=== PATIENT | male | born 1990 | race Two or more races ===

== ENCOUNTER 2016-12-04 12:47 | Emergency (ER) | payer SELFPAY ==
[~2016-12-04] VITALS: Ht 170.2 cm; Wt 136.1 kg
[~2016-12-04 12:47] MED LIST: BACTRIM DS TAB1 EAC1 ORAL
[2016-12-04 13:00] VITALS: BP 130/83
[2016-12-04] MEDS ORDERED: NKM (13:00)
[2016-12-04] MEDS ORDERED: Famotidine 20 MG/ 2ML VIAL IVP ONE (13:15)
--- NOTE | 2016-12-04 13:26 | Emergency Room Report ---
History of Present Illness General Chief Complaint: Chest Pain Source: Patient Present Illness HPI This is a 26-year-old male presented after increased epigastric pain and vomiting. This began several days ago. Patient associated abdominal pain which radiated to his back. Patient denied any fever. He reported having the persistent chest discomfort for several months. 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 He denies any recent trauma he reports drinking alcohol during the weekend but states he does not drink heavily. The pain is described as a burning sensation epigastric area Allergies: Coded Allergies: No Known Allergies (Unverified , 09/20/14) Patient History Past Medical History: see triage record Reviewed Nursing Documentation: PMH: Agreed, PSxH: Agreed Nursing Documentation-PMH Past Medical History: No Stated History Review of Systems All Other Systems: negative except mentioned in HPI Physical Exam Vital Signs Date Time Temp Pulse Resp B/P (MAP) Pulse Ox O2 Delivery O2 Flow Rate FiO2 12/04/16 12:54 98.2 106 20 129/85 97 Room Air Sp02 EP Interpretation: reviewed, normal General Appearance: normal inspection, well appearing, no apparent distress, alert, GCS 15, obese, Chronically Ill Head: atraumatic ENT: normal ENT inspection, hearing grossly normal, normal voice Neck: normal inspection, full range of motion, supple, no bony tend Respiratory: normal inspection, lungs clear, normal breath sounds, no respiratory distress, no retraction, no wheezing Cardiovascular #1: regular rate, rhythm, no edema Gastrointestinal: normal inspection, normal bowel sounds, non tender, soft, no guarding, no hernia Genitourinary: no CVA tenderness Musculoskeletal: normal inspection, back normal, normal range of motion Neurologic: normal inspection, alert, oriented x3, responsive, 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 Differential diagnoses included ischemic bowel, appendicitis, perforated viscus, abdominal aortic aneurysm, inferior myocardial infarction, viral gastroenteritis. Because of complexity of patient' s case laboratory testing and imaging studies were ordered. The EKG interpreted by me showed normal sinus rhythm with a rate of [address] or T wave changes.Patient was given Zofran. A CT imaging of the abdomen pelvis read by radiology showed hiatal hernia and small umbilical hernia. The patient is also noted to have fatty liver. Laboratory testing was notable for mildly elevated liver function tests. Patient was given prescriptions for Zofran as well as Keflex and acid blocking medication. To the patient's symptoms are likely due to gastroesophageal reflux however he was advised to followup with his primary care physician for further evaluation and treatment The patient is advised alcohol cessation and a low carbohydrate diet. The patient is advised to follow up with primary care doctor in 1-2 days. Patient is advised to return if any worsening condition or if any changes in status that are concerning. Labs Test 12/04/16 13:15 12/04/16 13:36 White Blood Count 11.0 K/UL (4.8-10.8) Red Blood Count 5.21 M/UL (4.70-6.10) Hemoglobin 15.3 G/DL (14.2-18.0) Hematocrit 46.9 % (42.0-52.0) Mean Corpuscular Volume 90 FL (80-99) Mean Corpuscular Hemoglobin 29.3 PG (27.0-31.0) Mean Corpuscular Hemoglobin Concent 32.5 G/DL (32.0-36.0) Red Cell Distribution Width 12.2 % (11.6-14.8) Platelet Count 250 K/UL (150-450) Mean Platelet Volume 9.1 FL (6.5-10.1) Neutrophils (%) (Auto) 59.0 % (45.0-75.0) Lymphocytes (%) (Auto) 30.3 % (20.0-45.0) Monocytes (%) (Auto) 7.5 % (1.0-10.0) Eosinophils (%) (Auto) 2.1 % (0.0-3.0) Basophils (%) (Auto) 1.2 % (0.0-2.0) Sodium Level 143 mEQ/L (135-145) Potassium Level 4.7 mEQ/L (3.4-4.9) Chloride Level 104 mEQ/L (98-107) Carbon Dioxide Level 29 mEQ/L (20-30) Anion Gap 10 (5-15) Blood Urea Nitrogen 12 mg/dL (7-23) Creatinine 1.1 mg/dL (0.7-1.2) Estimat Glomerular Filtration Rate > 60 mL/min (>60) Glucose Level 83 mg/dL (74-106) Calcium Level 9.8 mg/dL (8.6-10.2) Total Bilirubin 0.4 mg/dL (0.0-1.2) Aspartate Amino Transf (AST/SGOT) 57 U/L (5-40) Alanine Aminotransferase (ALT/SGPT) 84 U/L (3-41) Alkaline Phosphatase 60 U/L (40-129) Troponin I < 0.30 ng/mL (<=0.30) Total Protein 7.5 g/dL (6.6-8.7) Albumin 4.3 g/dL (3.5-5.2) Globulin 3.2 g/dL Albumin/Globulin Ratio 1.3 (1.0-2.7) Lipase 15 U/L (< 60) Urine Color Yellow Urine Appearance Slightly cloudy Urine pH 6 (4.5-8.0) Urine Specific [place] 1.025 (1.005-1.035) Urine Protein 2+ (NEGATIVE) Urine Glucose (UA) Negative (NEGATIVE) Urine Ketones Negative (NEGATIVE) Urine Occult Blood 1+ (NEGATIVE) Urine Nitrite Negative (NEGATIVE) Urine Bilirubin Negative (NEGATIVE) Urine Urobilinogen 1 MG/DL (0.0-1.0) Urine Leukocyte Esterase 1+ (NEGATIVE) Urine RBC 2-4 /HPF (0 - 0) Urine WBC 10-15 /HPF (0 - 0) Urine Squamous Epithelial Cells Few /LPF (NONE/OCC) Urine Bacteria Few /HPF (NONE) Urine Hyaline Casts 5-10 /LPF (NONE) Urine Granular Casts 0-2 /LPF (NONE) Urine Mucus Moderate /LPF (NONE/OCC) Last Vital Signs Date Time Temp Pulse Resp B/P (MAP) Pulse Ox O2 Delivery O2 Flow Rate FiO2 12/04/16 12:54 98.2 106 20 129/85 97 Room Air Status: improved Disposition: HOME, SELF-CARE Condition: Stable Scripts Ondansetron (Zofran) 4 Mg Tablet 4 MG ORAL Q6H Y for Nausea & Vomiting, #30 TAB 0 Refills Prov: Mauro Sharma 12/04/16 Omeprazole Magnesium (PRILOSEC) 10 Mg Suspdr.pkt 10 MG ORAL DAILY, #30 PACKET Prov: Mauro Sharma 9/20/17 Cephalexin* (KEFLEX*) 500 Mg Capsule 500 MG ORAL Q6H, #28 CAP 0 Refills Prov: Mauro Sharma 12/04/16 Mauro Sharma Dec 04, 2016 13:26
[2016-12-04 13:39] LABS: BASOPHILS % (AUTO) 1.2 % (0.0-2.0); EOSINOPHILS % (AUTO) 2.1 % (0.0-3.0); LYMPHOCYTES % (AUTO) 30.3 % (20.0-45.0); MEAN CORPUSCULAR HEMOGLOBIN 29.3 PG (27.0-31.0); MEAN CORPUSCULAR HGB CONC 32.5 G/DL (32.0-36.0); MEAN CORPUSCULAR VOLUME 90 FL (80-99); MEAN PLATELET VOLUME 9.1 FL (6.5-10.1); MONOCYTES % (AUTO) 7.5 % (1.0-10.0); PLATELET COUNT 250 K/UL (150-450); RED BLOOD COUNT 5.21 M/UL (4.70-6.10); RED CELL DISTRIBUTION WIDTH 12.2 % (11.6-14.8)
[2016-12-04 13:52] LABS: ALANINE AMINOTRANSFERASE 84 U/L (3-41); ALBUMIN/GLOBULIN RATIO 1.3 (1.0-2.7); ANION GAP 10 (5-15); ASPARTATE AMINO TRANSFERASE 57 U/L (5-40); CALCIUM 9.8 mg/dL (8.6-10.2); CARBON DIOXIDE 29 mEQ/L (20-30); CHLORIDE 104 mEQ/L (98-107); CREATININE 1.1 mg/dL (0.7-1.2); GLOMERULAR FILTRATION RATE > 60 mL/min (>60); HEMOLYSIS 7; LIPASE 15 U/L (< 60); POTASSIUM 4.7 mEQ/L (3.4-4.9); SODIUM 143 mEQ/L (135-145); TOTAL PROTEIN 7.5 g/dL (6.6-8.7); TROPONIN I < 0.30 ng/mL (<=0.30)
[2016-12-04 14:00] VITALS: BP 116/72
[2016-12-04 14:07] LABS: KETONES,URINE NEGATIVE (NEGATIVE); LEUKOCYTE ESTERASE ,URINE 1+ (NEGATIVE); NITRITE,URINE NEGATIVE (NEGATIVE); PH,URINE 6 (4.5-8.0); PROTEIN,URINE 2+ (NEGATIVE); UROBILINOGEN,URINE 1 MG/DL (0.0-1.0)
[2016-12-04 14:17] LABS: APPEARANCE,URINE SLIGHTLY CLOUDY; BACTERIA,URINE FEW /HPF; GRANULAR CASTS,URINE 0-2 /LPF; MUCUS,URINE MODERATE /LPF (NONE/OCC); SQUAMOUS EPITHELIAL CELL,UR FEW /LPF (NONE/OCC)
[2016-12-04] MEDS ORDERED: cefTRIAXone 1 GM in NS 55 ML IVPB ONE (14:45)
--- NOTE | 2016-12-04 15:00 | Diagnostic Imaging Report ---
Clinical Indication: 26-year-old male with increased epigastric pain vomiting beginning several days ago Technique: No oral contrast utilized, per emergency room physician request IV administration nonionic contrast. Venous phase spiral acquisition obtained through the abdomen and pelvis. Multiplanar reconstructions were generated. Total dose length product 1113 mGycm. CTDIvol(s) 19 mGy. Dose reduction achieved using automated exposure control Comparison: None Findings: Assessment of the GI tract is limited in the absence of oral contrast. The appendix is normal. No evidence of diverticulosis or diverticulitis. No small bowel distention. No free or loculated intraperitoneal air or fluid. Distal esophagus, stomach, duodenum are unremarkable. Tiny fat-containing helical hernia is incidentally noted The liver is diffusely hypoattenuating, consistent with fatty change. No no definite acute abnormality focal abnormality demonstrated. The gallbladder is nondistended. No biliary ductal dilatation. The pancreas, spleen, adrenals, kidneys are all unremarkable. No renal or ureteral calculi, hydronephrosis, or hydroureter. The bladder is unremarkable. No pelvic mass or adenopathy. No retroperitoneal or mesenteric mass or adenopathy. A few slightly prominent but not enlarged lymph nodes are seen in the right lower quadrant mesenteric fat. The included lung bases are clear. The bones are unremarkable. Impression: Limited assessment of the GI tract, given absence of oral contrast demonstration No definite acute abnormality Fatty liver Incidental finding tiny fat-containing umbilical hernia. The CT scanner at [facility] is accredited by the [employer] and the scans are performed using protocols designed to limit radiation exposure to as low as reasonably achievable to attain images of sufficient resolution adequate for diagnostic evaluation.
[2016-12-04] MEDS ORDERED: KEFLEX500 MG ORAL (15:13)
[2016-12-04] MEDS ORDERED: PRILOSEC10 M1 ORAL (15:13)
[2016-12-04] MEDS ORDERED: ZOFRAN4 MG ORAL (15:18)
[2016-12-04 15:29] VITALS: BP 129/83
== END 2016-12-04 15:30 | disposition home or self-care (01) ==
LOC: EMR 13:26
DX: N39.0 Urinary tract infection, site not specified (principal); R10.13 Epigastric pain; R11.10 Vomiting, unspecified; K76.0 Fatty (change of) liver, not elsewhere classified
CPT/HCPCS: 36415; 74177; 80053; 81003; 83690; 84484; 85025; 87086; 96361; 96365; 96375; 99284; J0696; J2405; J7040; Q9967; S0028

== ENCOUNTER 2019-12-19 08:41 | Emergency (ER) | payer SELFPAY ==
[~2019-12-19] VITALS: Ht 172.7 cm; Wt 163.3 kg
[~2019-12-19 08:41] MED LIST changes: +KEFLEX500 MG ORAL; +NKM; +PRILOSEC10 M1 ORAL; +ZOFRAN4 MG ORAL
--- NOTE | 2019-12-19 09:25 | Emergency Room Report ---
History of Present Illness General Chief Complaint: General Complaint Source: Patient Present Illness HPI Patient presents with several complaints. The main one he is concerned about is he is passing blood per rectum. He has had hemorrhoids in the past. Does not feel them at this time. It is been bright red blood. Has not been mixed with the stool. He denies any diarrhea but has had constipation. The constipation has been worse over the last week. The other problems are that he is had some wheezing that other people of heard. He is never had breathing treatments in the past or an inhaler. He does smoke and stopped 1 week ago. He denies productive cough. He is felt feverish. In addition he is felt fleeting chest pains and also indigestion. He is also had some cramps in his muscles recently. Mainly his left leg and thigh. He has been traveling on an airplane several times visiting family members across the country. He frequently gets diaphoretic with exertion. Sometimes this happens at rest. He rates the chest pain at 5/10, pressure, more on right and not radiating. He denies chills, sore throat, productive cough, NV, dysuria, joint pain, hea daches, anxiety, visual changes. 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 Patient History Past Medical History: see triage record, old chart reviewed Social History: Reports: smoking Social History Narrative sports media Reviewed Nursing Documentation: PMH: Agreed; PSxH: Agreed Nursing Documentation-PM Past Medical History: No History, Except For Review of Systems All Other Systems: negative except mentioned in HPI Physical Exam Vital Signs Date Time Temp Pulse Resp B/P (MAP) Pulse Ox O2 Delivery O2 Flow Rate FiO2 12/19/19 08:46 98.1 114 22 137/84 (101) 96 Room Air Sp02 EP Interpretation: reviewed, abnormal - interpreted as slightly low by me General Appearance: no apparent distress, alert, GCS 15, non-toxic, obese Head: normocephalic, atraumatic Eyes: bilateral eye normal inspection, bilateral eye PERRL ENT: normal pharynx, other - wearing mask Neck: full range of motion, supple Respiratory: no respiratory distress, wheezing, expiration Cardiovascular #1: regular rate, rhythm, no edema Cardiovascular #2: 2+ radial (R) Gastrointestinal: non tender, soft, overweight Rectal: hemorrhoids - Blood without active bleeding Genitourinary: no CVA tenderness Musculoskeletal: back normal, normal range of motion, no calf tenderness, Sonu's Sign negative Neurologic: alert, grossly normal Psychiatric: mood/affect normal Skin: no rash, warm/dry Medical Decision Making Diagnostic Impression: Primary Impression: Dyspnea Qualified Codes: R06.00 - Dyspnea, unspecified Additional Impressions: Chest pain Qualified Codes: R07.89 - Other chest pain Bronchospasm Bleeding hemorrhoid COVID-19 ruled out by laboratory testing ER Course Patient presents with dyspnea and passing bright red blood per rectum. There were several issues going on here. We need to exclude COVID-19. He has bronchospasm. Chest x-ray and EKG are indicated to rule out ID, PE and also pneumonia. Labs will be obtained to exclude electrolyte abnormalities as he is having some cramps in his muscles. The rectal bleeding is fairly clearly a hemorrhoid and this can be taken care of however CBC is indicated. Patient will be treated with DuoNeb after COVID-19 returns, Tylenol and Mylanta. Patient is complaining about some reflux symptoms. He has a history of hiatal hernia. EKG sinus tachycardia. CXR clear. CBC normal. CMP normal. Elevated D-dimer. UA normal. Patient still with CP, diaphoretic after tx. + d dimer. CTA ordered. cardiac monitor. Minimal improvement with Duoneb. CTA no PE. After repeat albuterol patient markedly improved. Solu-Medrol given to the patient. Exercised in the emergency department and oxygen saturation after that is remaining at 98%. He feels better and wants to be observed as an outpatient. No medical emergency. Patient stable for outpatient observation and treatment. Laboratory Tests Test 12/19/19 09:50 12/19/19 10:00 White Blood Count 9.5 K/UL (4.8-10.8) Red Blood Count 5.00 M/UL (4.70-6.10) Hemoglobin 14.3 G/DL (14.2-18.0) Hematocrit 42.4 % (42.0-52.0) Mean Corpuscular Volume 85 FL (80-99) Mean Corpuscular Hemoglobin 28.6 PG (27.0-31.0) Mean Corpuscular Hemoglobin Concent 33.7 G/DL (32.0-36.0) Red Cell Distribution Width 12.8 % (11.6-14.8) Platelet Count 224 K/UL (150-450) Mean Platelet Volume 7.7 FL (6.5-10.1) Neutrophils (%) (Auto) 62.7 % (45.0-75.0) Lymphocytes (%) (Auto) 25.7 % (20.0-45.0) Monocytes (%) (Auto) 8.5 % (1.0-10.0) Eosinophils (%) (Auto) 2.2 % (0.0-3.0) Basophils (%) (Auto) 1.0 % (0.0-2.0) Prothrombin Time 11.1 SEC (9.30-11.50) Prothrombin Time INR 1.0 (0.9-1.1) Activated Partial Thromboplast Time 27 SEC (23-33) D-Dimer 0.93 mg/L FEU (0.00-0.49) H Sodium Level 139 MMOL/L (136-145) Potassium Level 4.6 MMOL/L (3.5-5.1) Chloride Level 106 MMOL/L (98-107) Carbon Dioxide Level 27 MMOL/L (21-32) Anion Gap 6 mmol/L (5-15) Blood Urea Nitrogen 15 mg/dL (7-18) Creatinine 1.0 MG/DL (0.55-1.30) Estimated Glomerular Filtration Rate > 60 mL/min (>60) Glucose Level 104 MG/DL (74-106) Calcium Level 9.0 MG/DL (8.5-10.1) Ferritin 222 NG/ML (8-388) Total Bilirubin 0.6 MG/DL (0.2-1.0) Aspartate Amino Transferase (AST) 50 U/L (15-37) H Alanine Aminotransferase (ALT) 79 U/L (12-78) H Alkaline Phosphatase 74 U/L (46-116) Lactate Dehydrogenase 189 U/L (81-234) Total Creatine Kinase 254 U/L (26-308) Troponin I 0.000 ng/mL (0.000-0.056) C-Reactive Protein, Quantitative 4.3 mg/dL (0.00-0.90) H Pro-B-Type Natriuretic Peptide 6 pg/mL (0-125) Total Protein 7.6 G/DL (6.4-8.2) Albumin 3.6 G/DL (3.4-5.0) Globulin 4.0 g/dL Albumin/Globulin Ratio 0.9 (1.0-2.7) L Lipase 72 U/L (73-393) L Urine Color Brown Urine Appearance Clear Urine pH 5 (4.5-8.0) Urine Specific [place] 1.025 (1.005-1.035) Urine Protein 2+ (NEGATIVE) H Urine Glucose (UA) Negative (NEGATIVE) Urine Ketones 1+ (NEGATIVE) H Urine Blood Negative (NEGATIVE) Urine Nitrite Negative (NEGATIVE) Urine Bilirubin Negative (NEGATIVE) Urine Urobilinogen 1 MG/DL (0.0-1.0) H Urine Leukocyte Esterase 1+ (NEGATIVE) H Urine RBC 0 /HPF (0 - 0) Urine WBC 0-2 /HPF (0 - 0) Urine Squamous Epithelial Cells Occasional /LPF Urine Bacteria Occasional /HPF (NONE) Urine Mucus Few /LPF (NONE/OCC) H Microbiology Date/Time Source Procedure Growth Status 12/19/19 09:50 Nasopharynx SARS-CoV-2 RdRp Gene Assay - Final Complete EKG Diagnostic Results Rate: tachycardiac Rhythm: NSR ST Segments: no acute changes - NSSTTW changes Rhythm Strip Diag. Results EP Interpretation: yes Rhythm: no PVC's, no ectopy, other - ST Chest X-Ray Diagnostic Results Chest X-Ray Diagnostic Results : Chest X-Ray Ordered: Yes # of Views/Limited/Complete: 1 View Indication: Other EP Interpretation: Yes Interpretation: no consolidation, no effusion, no pneumothorax Impression: Other CT/MRI/US Diagnostic Results CT/MRI/US Diagnostic Results : Imaging Test Ordered: CTA chest Impression No PE or infiltrates Last Vital Signs Date Time Temp Pulse Resp B/P (MAP) Pulse Ox O2 Delivery O2 Flow Rate FiO2 12/19/19 14:47 97.9 103 14 153/98 99 Room Air 12/19/19 13:24 21 Status: improved Disposition: HOME, SELF-CARE Condition: Improved Scripts Lactulose (LACTULOSE*) 20 Gm/30 Ml Solution 30 ML ORAL QHS, #120 ML 1 Refill Prov: Luis Santana MD 12/19/19 Hydrocortisone Acetate* (ANUSOL-HC*) 25 Mg Supp.rect 1 SUPP RECTAL TWICE A DAY, #14 SUPP Prov: Luis Santana MD 12/19/19 Albuterol Sulfate* (PROAIR HFA*) 8.5 Gm Hfa.aer.ad 2 PUFFS INH Q6H, #8.5 GM 0 Refills Prov: Luis Santana MD 12/19/19 Prednisone* (PREDNISONE*) 20 Mg Tablet 40 MG ORAL DAILY, #10 TAB Prov: Luis Santana MD 12/19/19 Luis Santana MD Dec 19, 2019 09:25
[2019-12-19] MEDS ORDERED: Mylanta II UD 30ml ORAL ONE (09:30)
[2019-12-19] MEDS ORDERED: Albuterol/Ipratropium 3ml neb HHN ONE (09:30)
[2019-12-19 10:01] LABS: EOSINOPHILS % (AUTO) 2.2 % (0.0-3.0); HEMATOCRIT 42.4 % (42.0-52.0); HEMOGLOBIN 14.3 G/DL (14.2-18.0); LYMPHOCYTES % (AUTO) 25.7 % (20.0-45.0); MEAN CORPUSCULAR VOLUME 85 FL (80-99); MONOCYTES % (AUTO) 8.5 % (1.0-10.0); NEUTROPHILS % (AUTO) 62.7 % (45.0-75.0); PLATELET COUNT 224 K/UL (150-450); RED CELL DISTRIBUTION WIDTH 12.8 % (11.6-14.8); WHITE BLOOD COUNT 9.5 K/UL (4.8-10.8)
[2019-12-19 10:17] LABS: ANION GAP 6 mmol/L (5-15); BLOOD UREA NITROGEN 15 mg/dL (7-18); CARBON DIOXIDE 27 MMOL/L (21-32); CHLORIDE 106 MMOL/L (98-107); POTASSIUM 4.6 MMOL/L (3.5-5.1); SODIUM 139 MMOL/L (136-145)
[2019-12-19 10:29] LABS: APPEARANCE,URINE CLEAR; BILIRUBIN, URINE NEGATIVE (NEGATIVE); COLOR,URINE BROWN; GLUCOSE, URINE (UA) NEGATIVE (NEGATIVE); KETONES,URINE 1+ (NEGATIVE); LEUKOCYTE ESTERASE ,URINE 1+ (NEGATIVE); NITRITE,URINE NEGATIVE (NEGATIVE); PH,URINE 5 (4.5-8.0); PROTEIN,URINE 2+ (NEGATIVE); UROBILINOGEN,URINE 1 MG/DL (0.0-1.0)
[2019-12-19 10:35] LABS: ALANINE AMINOTRANSFERASE 79 U/L (12-78); ALBUMIN 3.6 G/DL (3.4-5.0); ALBUMIN/GLOBULIN RATIO 0.9 (1.0-2.7); ALKALINE PHOSPHATASE 74 U/L (46-116); ASPARTATE AMINO TRANSFERASE 50 U/L (15-37); BILIRUBIN,TOTAL 0.6 MG/DL (0.2-1.0); CREATINE KINASE 254 U/L (26-308); FERRITIN 222 NG/ML (8-388); LACTATE DEHYDROGENASE 189 U/L (81-234)
[2019-12-19 10:39] VITALS: BP 147/86
--- NOTE | 2019-12-19 10:45 | Diagnostic Imaging Report ---
EXAM: XR Chest, 1 View CLINICAL HISTORY: DYSPNEA TECHNIQUE: 2 Frontal view of the chest. COMPARISON: No relevant prior studies available. FINDINGS: Lungs: Unremarkable. No consolidation. Pleural space: Unremarkable. No pneumothorax. Heart: Unremarkable. No cardiomegaly. Mediastinum: Unremarkable. Bones/joints: Unremarkable. IMPRESSION: No focal infiltrate.
[2019-12-19] MEDS ORDERED: Morphine Sulfate 4mg/ml Inj (IV USE ONLY) IVP ONE (11:00)
[2019-12-19] MEDS ORDERED: Omnipaque 350 100ml vial INJ PRN (11:00)
--- NOTE | 2019-12-19 12:28 | Diagnostic Imaging Report ---
EXAM: CT Angiography Chest With Intravenous Contrast CLINICAL HISTORY: PE TECHNIQUE: Axial computed tomographic angiography images of the chest with intravenous contrast. CTDI is 91.9 mGy and DLP is 556.4 mGy-cm. One or more of the following dose reduction techniques were used: automated exposure control, adjustment of the mA and/or kV according to patient size, use of iterative reconstruction technique. MIP reconstructed images were created and reviewed. COMPARISON: No relevant prior studies available. FINDINGS: Pulmonary arteries: No pulmonary embolism. Aorta: No acute findings. No thoracic aortic aneurysm. Lungs: Lungs clear. No mass. Pleural space: Unremarkable. No significant effusion. No pneumothorax. Heart: Unremarkable. No cardiomegaly. No significant pericardial effusion. No evidence of RV dysfunction. Bones/joints: No acute fracture. No dislocation. Soft tissues: Unremarkable. Lymph nodes: Small mediastinal and axillary lymph nodes. Liver: Fatty enlarged liver. IMPRESSION: 1. No pulmonary embolism. 2. Lungs clear. 3. Fatty enlarged liver.
[2019-12-19 12:48] VITALS: BP 114/59
[2019-12-19] MEDS ORDERED: Albuterol ud Inhalation HHN ONE (13:15)
[2019-12-19] MEDS ORDERED: Solu-MEDROL 125mg Inj IVP ONE (13:30)
[2019-12-19] MEDS ORDERED: PROAIR HFA8.5 GM INH (14:25)
[2019-12-19] MEDS ORDERED: PREDNISONE20 MG ORAL (14:25)
[2019-12-19] MEDS ORDERED: ANUSOL-HC25 MG RECTAL (14:25)
[2019-12-19] MEDS ORDERED: LACTULOSE20 GM/301 ORAL (14:26)
[2019-12-19 14:47] VITALS: BP 153/98
== END 2019-12-19 14:50 | disposition home or self-care (01) ==
LOC: EMR 09:50
DX: J98.01 Acute bronchospasm (principal); R06.00 Dyspnea, unspecified; R07.89 Other chest pain; K64.9 Unspecified hemorrhoids; F17.200 Nicotine dependence, unspecified, uncomplicated; E66.9 Obesity, unspecified; R00.0 Tachycardia, unspecified; K76.0 Fatty (change of) liver, not elsewhere classified; Z68.43 Body mass index [BMI] 50.0-59.9, adult
CPT/HCPCS: 36415; 71045; 71275; 80053; 81003; 82550; 82728; 83615; 83690; 83880; 84484; 85025; 85379; 85610; 85730; 86140; 93005; 94640; 96374; 96375; 99284; J2270; J2405; J2930; Q9967; U0002; J7620